=== PATIENT | female | born 1955 | race Caucasian/White ===

== ENCOUNTER 2023-12-25 16:50 | Inpatient (IN) | payer OTHER, MEDICAID ==
[~2023-12-25] VITALS: Wt 83.9 kg
[2023-12-25] VITALS (10 sets, daily range): BP systolic 165–206; BP diastolic 66–145
[2023-12-25] MEDS ORDERED: LOSARTAN POTASS25 M1 PO (17:05)
[2023-12-25 17:55] LABS: BASO % 0.5 % (0.0-1.0); EOS # 0.2 10*3/uL (0.0-0.4); EOS % 3.3 % (1.0-4.0); HEMATOCRIT 44.5 % (37.0-47.0); LYMPH # 1.1 10*3/uL (1.3-4.4); MEAN CELL VOLUME 87.8 fl (81.0-99.0); MEAN CORPUSCULAR HGB CONC 31.9 g/dl (33.0-37.0); MEAN PLATELET VOLUME 9.5 fl (9.6-12.3); MONO # 0.6 10*3/uL (0.1-1.0); MONO % 8.9 % (3.0-9.0); NEUT # 4.6 10*3/uL (2.3-7.9); PLATELET COUNT AUTOMATED 282 10*3/uL (130-400); RED BLOOD COUNT 5.07 10*6/uL (4.10-5.10); RED CELL DISTRI WIDTH 13.3 % (0-14.5); WHITE BLOOD COUNT 6.6 10*3/uL (4.8-10.8)
[2023-12-25 18:37] LABS: BUN 13 mg/dl (9-23); CHLORIDE 106 mmol/L (98-107); POTASSIUM 3.8 mmol/L (3.4-5.1)
[2023-12-25] MEDS ORDERED: Metoprolol Tartrate 5 MG/5 ML VIAL IV ONE (19:05)
[2023-12-25] MEDS ORDERED: LOPRESSOR25 MG PO (19:19)
[2023-12-25] MEDS ORDERED: Metoprolol Tartrate 25 MG TAB PO ONE (19:20)
[2023-12-25] MEDS ORDERED: hydrALAZINE hydrochloride 20 MG/ML VIAL IM ONE (20:25)
[2023-12-25] MEDS ORDERED: Labetalol Hydrochloride 20 MG/4 ML SYR IV ONE (21:15)
[2023-12-25] MEDS ORDERED: Magnesium Hydroxide 30 ML UDC PO PRN (22:00)
[2023-12-25] MEDS ORDERED: BISACODYL 10 MG SUPP R PRN (22:00)
[2023-12-25] MEDS ORDERED: ACETAMINOPHEN 650 MG SUPP R PRN (22:00)
[2023-12-25] MEDS ORDERED: BISACODYL 5 MG TAB PO PRN (22:00)
[2023-12-25] MEDS ORDERED: ACETAMINOPHEN 325 MG TAB PO PRN (22:00)
[2023-12-25] MEDS ORDERED: Ondansetron Hydrochloride 4 MG/2 ML VIAL IV PRN (22:00)
[2023-12-26 01:30] VITALS: BP 152/68
[2023-12-26 04:08] LABS: BASO % 0.5 % (0.0-1.0); EOS # 0.3 10*3/uL (0.0-0.4); EOS % 3.4 % (1.0-4.0); HEMATOCRIT 44.5 % (37.0-47.0); LYMPH # 1.2 10*3/uL (1.3-4.4); LYMPH % 16.1 % (27.0-41.0); MEAN CELL VOLUME 86.2 fl (81.0-99.0); MEAN CORPUSCULAR HGB 28.3 pg (27.0-31.0); MEAN CORPUSCULAR HGB CONC 32.8 g/dl (33.0-37.0); MEAN PLATELET VOLUME 9.6 fl (9.6-12.3); MONO # 0.6 10*3/uL (0.1-1.0); MONO % 8.4 % (3.0-9.0); NEUT # 5.5 10*3/uL (2.3-7.9); NEUT % 71.3 % (47.0-73.0); PLATELET COUNT AUTOMATED 262 10*3/uL (130-400); RED BLOOD COUNT 5.16 10*6/uL (4.10-5.10); RED CELL DISTRI WIDTH 13.5 % (0-14.5); WHITE BLOOD COUNT 7.7 10*3/uL (4.8-10.8)
[2023-12-26 04:32] LABS: ALKALINE PHOSPHATASE 94 U/L (46-116); BUN 9 mg/dl (9-23); CHLORIDE 107 mmol/L (98-107); CHOLESTEROL 187 mg/dL (<200); LDL CHOLESTEROL 121 mg/dL (9-159); POTASSIUM 3.7 mmol/L (3.4-5.1); SGPT/ALT 12 U/L (5-49); TOTAL PROTEIN 6.5 gm/dL (6.0-8.0); TRIGLYCERIDES 106 mg/dl (<150)
[2023-12-26 06:00] VITALS: BP 148/66
[2023-12-26 08:00] VITALS: BP 154/72
[2023-12-26] MEDS ORDERED: Enoxaparin Sodium 40 MG/0.4 ML SYR SC SCH (10:00)
[2023-12-26] MEDS ORDERED: Losartan Potassium 50 MG TAB PO SCH (10:00)
[2023-12-26] MEDS ORDERED: LOSARTAN POTASS50 M1 PO (11:33)
[2023-12-31] MEDS ORDERED: LOSARTAN POTASS25 M1 PO (12:06)
[2023-12-31] MEDS ORDERED: NORVASC5 MG PO (12:06)
== END 2023-12-26 14:10 | disposition home or self-care (01) | DRG 305 ==
LOC: ED 16:50 → EDHOLD 21:33
PROVIDERS: Emergency Medicine; Student in an Organized Health Care Education/Training Program; ADMIT Internal Medicine; ATTEND Internal Medicine
DX: I16.1 Hypertensive emergency (principal); R73.9 Hyperglycemia, unspecified; G51.0 Bell's palsy; Z82.49 Family history of ischemic heart disease and other diseases of the circulatory system; Z83.3 Family history of diabetes mellitus